=== PATIENT | female | born 1960 | race Caucasian/White ===

== ENCOUNTER 2020-05-24 12:37 | Emergency (ER) | payer SELFPAY ==
[2020-05-24] MEDS ORDERED: Ondansetron 4 MG Tab.DIS PO ONE (13:49)
--- NOTE | 2020-05-24 13:51 | EDM.PDOC ---
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 Stated Complaint: POSSIBLE COVID/SYMPTOMS Time Seen by Provider: 05/24/20 13:31 Source of Information: Reports: Patient, Family, RN Notes Reviewed History Limitations: Reports: No Limitations - History of Present Illness INITIAL COMMENTS - FREE TEXT/NARRATIVE: 59-year-old female presents emergency department a complaint of pelvic pressure and vaginal bleeding, she was recently admitted to the hospital for history of chronic vaginal bleeding found to have a hemoglobin of 4.9 transfuse 3 units underwent ultrasound and endometrial biopsy, the biopsy results did show an endometrial cancer she is set up for hysterectomy in the future. However after being discharged from the hospital was placed on medications of Provera and estradiol this did help with the bleeding however she started bleeding again today and now has increased pelvic pressure and feels nauseated - Related Data Allergies Allergy/AdvReac Type Severity Reaction Status Date / Time No Known Allergies Allergy Verified 05/24/20 13:10 Home Meds: Home Meds Ferrous Sulfate [Iron] 325 mg PO DAILY 05/24/20 [History] estradioL [Estradiol] 1 mg PO BID 05/24/20 [History] medroxyPROGESTERone [Provera] 10 mg PO BID 05/24/20 [History] Past Medical History Genitourinary History: Reports: Other (See Below) Other Genitourinary History: IUD infection about 1 year ago 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: Dysfunctional Uterine Bleeding, Other (See Below) Other [employer]OWS SYSTEM[employer] ENGINEER History: recent biopsy Hematologic History: Reports: Anemia, Blood Transfusion(s) Oncologic (Cancer) History: Reports: Uterine Social & Family History - Tobacco Use Tobacco Use Status *Q: Never Tobacco User - Recreational Drug Use Recreational Drug Use: No ED ROS GENERAL - Review of Systems Review Of Systems: See Below Constitutional: Reports: No Symptoms Respiratory: Reports: No Symptoms Cardiovascular: Reports: No Symptoms GI/Abdominal: Reports: No Symptoms ED EXAM, RENAL/ - Physical Exam Exam: See Below Exam Limited By: No Limitations General Appearance: Alert, WD/WN, No Apparent Distress Respiratory/Chest: No Respiratory Distress, Lungs Clear, Normal Breath Sounds, No Accessory Muscle Use, Chest Non-Tender Cardiovascular: Regular Rate, Rhythm, No Murmur GI/Abdominal: Normal Bowel Sounds, Soft, Distended, Tender (Pelvic area) Course - Vital Signs Last Recorded V/S: Last Vital Signs Temp 97.5 F 11/27/20 13:11 Pulse 66 05/24/20 16:27 Resp 12 05/24/20 16:27 BP 135/72 05/24/20 16:27 Pulse Ox 99 05/24/20 16:27 - Orders/Labs/Meds Orders: Active Orders 24 hr Category Date Time Status Peripheral IV Care [RC] . DIRECTED Care 05/24/20 15:15 Active Sodium Chloride 0.9% [Saline Flush] Med 05/24/20 15:15 Active 10 ml FLUSH ASDIRECTED PRN Peripheral IV Insertion Adult [OM.PC] Urgent Oth 05/24/20 15:15 Ordered Medication Orders Sodium Chloride (Saline Flush) 10 ml FLUSH ASDIRECTED PRN PRN Reason: Keep Vein Open Last Admin: 05/24/20 15:42 Dose: 10 ml Documented by: BERTO Labs: Laboratory Tests 05/24/20 05/24/20 Range/Units 13:52 13:52 WBC 9.1 (4.5-11.0) K/uL RBC 3.09 L (3.30-5.50) M/uL Hgb 8.0 L (12.0-15.0) g/dL Hct 26.2 L (36.0-48.0) % MCV 85 (80-98) fL MCH 26 L (27-31) pg MCHC 31 L (32-36) % Plt Count 169 (150-400) K/uL Neut % (Auto) 86 H (36-66) % Lymph % (Auto) 6 L (24-44) % [place] % (Auto) 7 H (2-6) % Eos % (Auto) 1 L (2-4) % Baso % (Auto) 0 (0-1) % Sodium 138 L (140-148) mmol/L Potassium 4.8 (3.6-5.2) mmol/L Chloride 103 (100-108) mmol/L Carbon Dioxide 21 (21-32) mmol/L Anion Gap 18.8 H (5.0-14.0) mmol/L BUN 26 H (7-18) mg/dL Creatinine 2.8 H (0.6-1.0) mg/dL Est Cr Clr Drug Dosing 17.53 mL/min Estimated GFR (MDRD) 17 L (>60) Glucose 118 H (74-106) mg/dL Calcium 8.5 (8.5-10.1) mg/dL Total Bilirubin 1.1 H (0.2-1.0) mg/dL AST 140 H (15-37) U/L ALT 55 (12-78) U/L Alkaline Phosphatase 62 (46-116) U/L Total Protein 6.0 L (6.4-8.2) g/dL Albumin 3.2 L (3.4-5.0) g/dL Globulin 2.8 (2.3-3.5) g/dL Albumin/Globulin Ratio 1.1 L (1.2-2.2) Meds: Medications Generic Name Dose Route Start Last Admin Trade Name Freq PRN Reason Stop Dose Admin Sodium Chloride 10 ml 05/24/20 15:15 05/24/20 15:42 Saline Flush FLUSH 10 ml ASDIRECTED PRN Administration Keep Vein Open Discontinued Medications Generic Name Dose Route Start Last Admin Trade Name Freq PRN Reason Stop Dose Admin Lactated Ringer's 1,000 mls @ 999 mls/hr 05/24/20 15:15 05/24/20 15:42 Ringers, Lactated IV 05/24/20 16:15 999 mls/hr BOLUS ONE Administration Ondansetron HCl 4 mg 05/24/20 13:49 05/24/20 14:14 Zofran Odt PO 05/24/20 13:50 4 mg ONETIME ONE Administration - Re-Assessments/Exams Free Text/Narrative Re-Assessment/Exam: 05/24/20 15:15 12 and discussed case with Dr. Hu WINDOWS SYSTEMS ENGINEER [facility] 15:15 recommended 1 L fluids increase the Provera from 10 mg twice daily to 20 mg twice daily, she will contact Dr. Hines her primary OB plan for a hysterectomy next week Departure - Departure Time of Disposition: 16:54 Disposition: Home, Self-Care 01 Condition: Fair Clinical Impression: Pelvic pain - Discharge Information Instructions: Pelvic Pain, Female, [id number] Referrals: PCP,None [Primary Care Provider] - Forms: ED Department Discharge Additional Instructions: Increase your Provera from 10 mg twice daily to 20 mg twice daily continue to push fluids please call to the [facility] in [place] for follow-up on future hysterectomy call or return to the emergency department worsening of symptoms Sepsis Event Note (ED) - Evaluation Sepsis Screening Result: No Definite Risk - Focused Exam Vital Signs: Vital Signs Temp Pulse Resp BP Pulse Ox 05/24/20 16:27 66 12 135/72 99 05/24/20 15:15 64 12 131/80 99 05/24/20 14:15 74 12 143/77 H 100 05/24/20 13:11 97.5 F 75 16 150/85 H 98 05/24/20 12:57 97.5 F 75 16 150/85 H 98 - My Orders Last 24 Hours: My Active Orders 05/24/20 15:15 Peripheral IV Care [RC] . DIRECTED Sodium Chloride 0.9% [Saline Flush] 10 ml FLUSH ASDIRECTED PRN Peripheral IV Insertion Adult [OM.PC] Urgent - Assessment/Plan Last 24 Hours: My Active Orders 05/24/20 15:15 Peripheral IV Care [RC] . DIRECTED Sodium Chloride 0.9% [Saline Flush] 10 ml FLUSH ASDIRECTED PRN Peripheral IV Insertion Adult [OM.PC] Urgent Plan: Assessment Acuity = acute Site and laterality = vaginal bleeding known history of uterine cancer Etiology = progression of disease Manifestations = pelvic pressure Location of injury = Home Lab values = CBC unremarkable other than hemoglobin low at 8.0 consistent with normochromic anemia creatinine elevated 2.8 consistent with acute renal failure stage G4 AST elevated 140 consistent with elevated liver enzymes Plan Call discussed case with Dr. Hu WINDOWS SYSTEMS ENGINEER [facility] plan is to increase her Provera from 10 mg twice daily to 20 mg twice daily she will call the clinic on Wednesday for coordination for future hysterectomy This note was dictated using [employer] voice recognition software please call with any questions on syntax or grammar.
[2020-05-24] MEDS ORDERED: Lactated Ringers 1,000 ML IV ONE (15:15)
[2020-05-24] MEDS ORDERED: Sodium Chloride 0.9% 10 ML Syringe FLUSH PRN (15:15)
== END 2020-05-24 17:32 | disposition home or self-care (01) ==
LOC: JP.ED 12:37
DX: R10.2 Pelvic and perineal pain (principal); D64.9 Anemia, unspecified; Z79.899 Other long term (current) drug therapy
CPT/HCPCS: 36415; 80053; 85025; 99284; A9270; J7120

== ENCOUNTER 2024-07-28 07:53 | Day surgery (SDC) | payer MEDICAID, MEDICARE ==
[2024-07-28] MEDS ORDERED: Midazolam 1 MG/ML 2 ML SDV ONE (08:07)
[2024-07-28] MEDS ORDERED: fentaNYL 50 MCG/ML SDV ONE (08:07)
[2024-07-28] MEDS ORDERED: Propofol 200 MG/20 ML SDV ONE (08:07)
[2024-07-28] MEDS: Lactated Ringers 1,000 ML IV SCH (08:35)
== END 2024-07-28 11:04 | disposition home or self-care (01) ==
LOC: JP.SDS 07:53
PROVIDERS: ATTEND Surgery
DX: Z12.11 Encounter for screening for malignant neoplasm of colon (principal); K57.30 Diverticulosis of large intestine without perforation or abscess without bleeding
CPT/HCPCS: G0121; J2250; J2704; J3010; J7120